=== PATIENT | female | born 1990 | race Caucasian/White ===

== ENCOUNTER 2018-02-23 07:48 | Emergency (ER) | payer OTHER ==
[~2018-02-23] VITALS: Ht 167.6 cm; Wt 72.8 kg
[~2018-02-23 07:48] MED LIST: NOHOMEMEDS
[2018-02-23] MEDS ORDERED: PERCOCET 5/31 TABLET PO (09:00)
[2018-02-23] MEDS ORDERED: MEDROL DOSEPAK4 MG PO (09:00)
[2018-02-23 09:04] VITALS: BP 143/100
== END 2018-02-23 09:04 | disposition home or self-care (01) ==
LOC: EME 07:48
DX: M54.42 Lumbago with sciatica, left side (principal)
CPT/HCPCS: 99281; 99284; J1885; J7512